=== PATIENT | male | born 1995 | race Caucasian/White ===

== ENCOUNTER 2021-03-14 07:36 | Emergency (ER) | payer BC ==
[2021-03-14 08:06] VITALS: BP 116/77; PULSE 67; TEMP 98.7; BMI 24.2
== END 2021-03-14 10:02 | disposition home or self-care (01) ==
LOC: JER 07:36
DX: J11.1 Influenza due to unidentified influenza virus with other respiratory manifestations (principal)
CPT/HCPCS: 87804; 87807; 99283-25; C9803; U0003; U0005